=== PATIENT | female | born 1960 | race Caucasian/White ===

== ENCOUNTER 2019-08-09 | Emergency (ER) | payer MEDICARE ==
[~2019-08-09] MED LIST: AUGMENTIN875 MG OR; BACTROBAN2 % EX; CITALOPRAM40 MG PO; LEVOTHYROXIN75 MCG PO; METHADONE10 M1 OR; PAXIL40 MG PO; ROXICODONE30 MG OR
[2019-08-09] MEDS ORDERED: CHOLESTEROL MED PO (20:47)
[2019-08-09] MEDS ORDERED: ANTIDEPRESSANT (20:48)
[2019-08-09 21:07] LABS: URINE BILIRUBIN - DIPSTICK NEGATIVE (NEGATIVE); URINE BLOOD DIPSTICK LARGE (NEGATIVE); URINE COLOR YELLOW; URINE GLUCOSE - DIPSTICK NEGATIVE (NEGATIVE); URINE KETONE TRACE mg/dL (NEGATIVE); URINE NITRITE - DIPSTICK NEGATIVE (Negative); URINE PH 6.5 (4.5-8.0); URINE PROTEIN - DIPSTICK 100 mg/dL (NEG-TRACE); URINE UROBILINOGEN - DIPSTICK 0.2 E.U./dL (0.2)
[2019-08-09 21:08] LABS: URINE LEUK ESTERASE MODERATE (NEGATIVE)
[2019-08-09 21:17] LABS: URINE RBC 25-50 RBC/hpf (0-5); URINE SQUAMOUS EPITHELIAL CELL FEW EPI/hpf (0-FEW)
[2019-08-09] MEDS ORDERED: CIPROFLOXACN500 MG PO (22:12)
[2019-08-09] MEDS ORDERED: HYDROCO/APAP1 TA9 PO (22:12)
[2019-08-09] MEDS ORDERED: PYRIDIUM200 MG PO (22:12)
== END 2019-08-09 22:42 | disposition home or self-care (01) ==
DX: N39.0 Urinary tract infection, site not specified (principal); B96.20 Unspecified Escherichia coli [E. coli] as the cause of diseases classified elsewhere

== ENCOUNTER 2019-11-26 20:14 | Emergency (ER) | payer MEDICARE ==
[~2019-11-26] VITALS: Ht 157.5 cm; Wt 80.0 kg
[~2019-11-26 20:14] MED LIST changes: +ANTIDEPRESSANT; +CHOLESTEROL MED PO; +CIPROFLOXACN500 MG PO; +HYDROCO/APAP1 TA9 PO; +PYRIDIUM200 MG PO
[2019-11-26] MEDS ORDERED: LOTRISONE CREAM15 G1 EX (20:30)
[2019-11-26] MEDS ORDERED: STERAPRED DS10 MG PO (20:30)
[2019-11-26 21:21] VITALS: BP 116/62
== END 2019-11-26 21:21 | disposition home or self-care (01) ==
LOC: ED 20:14
DX: R21 Rash and other nonspecific skin eruption (principal)

== ENCOUNTER 2020-07-12 01:28 | Emergency (ER) | payer MEDICARE ==
[~2020-07-12] VITALS: Ht 157.5 cm; Wt 86.3 kg
[~2020-07-12 01:28] MED LIST changes: +LOTRISONE CREAM15 G1 EX; +STERAPRED DS10 MG PO
[2020-07-12] MEDS ORDERED: LIPITOR20 M1 PO (01:47)
[2020-07-12] MEDS ORDERED: PRISTIQ50 MG PO (01:49)
[2020-07-12 04:18] VITALS: BP 120/65
== END 2020-07-12 04:18 | disposition home or self-care (01) ==
LOC: ED 01:28
DX: L50.9 Urticaria, unspecified (principal); F17.210 Nicotine dependence, cigarettes, uncomplicated

== ENCOUNTER 2024-05-20 15:37 | Emergency (ER) | payer MEDICARE ==
[~2024-05-20] VITALS: Ht 157.5 cm; Wt 84.0 kg
[~2024-05-20 15:37] MED LIST changes: +LIPITOR20 M1 PO; +PRISTIQ50 MG PO
[2024-05-20 16:09] VITALS: BP 133/75
[2024-05-20 16:31] VITALS: BP 143/82
[2024-05-20 16:48] VITALS: BP 143/82
[2024-05-20] MEDS ORDERED: ZPAK PO (16:48)
== END 2024-05-20 16:55 | disposition home or self-care (01) ==
LOC: ED 15:37
DX: J06.9 Acute upper respiratory infection, unspecified (principal); Z72.0 Tobacco use; Z20.822 Contact with and (suspected) exposure to COVID-19